=== PATIENT | male | born 1965 | race Caucasian/White ===

== ENCOUNTER 2016-08-13 10:49 | Emergency (ER) | payer SELFPAY ==
--- NOTE | 2016-08-13 12:04 | ED PDOC ---
HPI: General Adult Time Seen by Provider: 08/13/16 11:03 Chief Complaint (Nursing): GI Problem Chief Complaint (Provider): rectal bleeding History Per: Patient History/Exam Limitations: no limitations Current Symptoms Are (Timing): Still Present Severity: Mild Additional Complaint(s): 51yo male c/o gross blood in brown stool over last 2 days. Denies abdominal pain , fever, vomiting or diarrhea. Last had blood in stool 2 years ago, no prior colonoscopy. Denies weight loss, dizziness or weakness. Has +history of constipation. Past Medical History Reviewed: Historical Data, Nursing Documentation, Vital Signs Vital Signs: Last Vital Signs Temp 98.4 F 08/13/16 13:02 Pulse 84 08/13/16 13:02 Resp 18 08/13/16 13:02 BP 134/84 08/13/16 13:02 Pulse Ox 95 08/13/16 13:02 - Medical History PMH: No Chronic Diseases - Surgical History Surgical History: Cholecystectomy - Family History Family History: States: Unknown Family Hx - Social History Current smoker - smoking cessation education provided: No Alcohol: None - Home Medications Home Medications: Ambulatory Orders Medication Instructions Recorded Docusate Sodium [Colace] 100 mg PO DAILY #30 sgl 08/30/14 Hard Fat/Phenylephrine [place] 1 sup RC DAILY #15 sup 08/30/14 [Anusol Suppository] - Allergies Allergies/Adverse Reactions: Allergies Allergy/AdvReac Type Severity Reaction Status Date / Time No Known Allergies Allergy Verified 08/30/14 11:10 Review of Systems Constitutional: Negative for: Fever, Chills Cardiovascular: Negative for: Chest Pain, Palpitations Respiratory: Negative for: Hemoptysis Gastrointestinal: Positive for: Hematochezia. Negative for: Nausea, Vomiting, Abdominal Pain, Hematemesis, Rectal Pain Genitourinary Male: Negative for: Dysuria, Frequency Musculoskeletal: Negative for: Arm Pain, Back Pain, Leg Pain Skin: Negative for: Rash, Lesions, Jaundice Neurological: Negative for: Weakness, Headache, Dizziness Physical Exam - Reviewed Nursing Documentation Reviewed: Yes Vital Signs Reviewed: Yes - Physical Exam Appears: Positive for: Well, Non-toxic, No Acute Distress Head Exam: Positive for: ATRAUMATIC, NORMAL INSPECTION, NORMOCEPHALIC Skin: Positive for: Normal Color, Warm, DRY Eye Exam: Positive for: Normal appearance, EOMI, PERRL. Negative for: Scleral icterus ENT: Positive for: Normal ENT Inspection Neck: Positive for: Normal, Painless ROM Cardiovascular/Chest: Positive for: Regular Rate, Rhythm Respiratory: Positive for: CNT, Normal Breath Sounds Gastrointestinal/Abdominal: Positive for: Bowel Sounds, Soft. Negative for: Tenderness, Guarding Back: Positive for: Normal Inspection Rectal: Positive for: Rectal Tone Is: (normal), Stool Is Heme: (++). Negative for: Black Stool, Hemorrhoids, Tenderness Extremity: Positive for: Normal ROM Neurologic/Psych: Positive for: Alert, Oriented - Laboratory Results Result Diagrams: 08/13/16 11:59 08/13/16 11:59 - ECG O2 Sat by Pulse Oximetry: 99 Pulse Ox Interpretation: Normal Medical Decision Making Medical Decision Making: Workup initiated w basic bloodwork. If Hgb stable, appropriate for DC home w mandatory followup w GI for colonoscopy. Explained in swiss and slov[place] need for folllowup for r/o malignancy. While internal hemorrhoids are possible, further testing is mandated and GI opinion is indicated. 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 Vitals normal. No indication for acute hospitalization. Pt understands need for followup and further testing. He requested prostate testing also, no current urinary symptoms, explained clinic or PMD provides primary and screening care. Disposition - Clinical Impression Clinical Impression: Rectal bleeding - Patient ED Disposition Is Patient to be Admitted: No Counseled Patient/Family Regarding: Studies Performed, Diagnosis, Need For Followup - Disposition Referrals: [facility] [Outside] Venu Li MD [Staff Provider] - Disposition: Routine/Home Disposition Time: 12:55 Condition: STABLE Additional Instructions: FOLLOWUP WITH EMR IMPLEMENTATION SPECIALIST FOR FURTHER TESTING, YOU WILL LIKELY NEED A COLONOSCOPY TO ASSURE THE CAUSE OF YOUR BLEEDING IS NOTHING MORE SEVERE, LIKE CANCER. Espanol- SEGUIMIENTO CON EL GASTROENTERLOGO PARA PRUEBAS ADICIONALES, USTED NECESITAR PROBABLEMENTE KAREY COLONOSCOPA PARA ASEGURAR LA [place] DE [place]WIN [place] NO ES NADA MS GRAVE, SABINO CNCER. Instructions: Rectal Bleeding (ED) Print Language: FRISIAN - POA Present On Arrival: None
[2016-08-13 12:11] LABS: BASO % 0.6 % (0.0-2.0); EOS # 0.1 K/uL (0.0-0.7); EOS % 1.8 % (0.0-4.0); HEMATOCRIT 44.9 % (35.0-51.0); LYMPH # 1.4 K/uL (1.0-4.3); LYMPH % 21.7 % (20.0-40.0); MEAN CELL VOLUME 91.2 fl (80.0-94.0); MEAN PLATELET VOLUME 8.9 fl (7.2-11.7); MONO # 0.5 K/uL (0.0-0.8); MONO % 7.6 % (0.0-10.0); NEUT # 4.3 K/uL (1.8-7.0); NEUT % 68.3 % (50.0-75.0); NRBC % 0.1 % (0.0-0.0); RED CELL DISTRIBUTION WIDTH 13.3 % (11.5-14.5); WHITE BLOOD COUNT 6.3 K/uL (4.8-10.8)
[2016-08-13 12:15] LABS: CHLORIDE 103 mmol/L (98-107)
[2016-08-13 12:16] LABS: POTASSIUM 3.9 MMOL/L (3.6-5.0); SODIUM 138 mmol/l (132-148)
[2016-08-13 12:18] LABS: ALB/GLOB RATIO 1.2 (1.0-2.1); BILIRUBIN,TOTAL 0.5 mg/dl (0.2-1.3); CARBON DIOXIDE 27 mmol/L (22-30); GFR AFRICAN-AMERICAN > 60; TOTAL PROTEIN 8.2 G/DL (6.3-8.2)
[2016-08-13 12:19] LABS: ALKALINE PHOSPHATASE 144 U/L (38-126); ALT/SGPT 84 U/L (21-72); AST/SGOT 56 U/L (17-59); BLOOD UREA NITROGEN 13 mg/dl (9-20); CALCIUM 8.8 mg/dL (8.4-10.2); GLUCOSE,RANDOM 116 mg/dL (75-110)
[2016-08-13 13:03] VITALS: BP 134/84; PULSE 84; RESP 18; TEMP 98.4
[2016-08-13 13:08] VITALS: O2SAT 99
== END 2016-08-13 13:07 | disposition home or self-care (01) ==
LOC: H.ER 10:49
DX: K62.5 Hemorrhage of anus and rectum (principal)